=== PATIENT | female | born 2000 | race Caucasian/White ===

== ENCOUNTER → 2019-04-28 18:11 | Outpatient (CLI) | payer BC, SELFPAY | PROVIDERS: Visit Provider Nurse Practitioner Family | DX: J02.9 Acute pharyngitis, unspecified (principal) | CPT/HCPCS: 87070 ==

== ENCOUNTER 2022-03-15 18:10 | Emergency (ER) | payer BC, SELFPAY ==
--- NOTE | 2022-03-15 19:10 | HMH.EDUTC ---
[facility] [place] Disposition Clinical Impression: Pharyngitis Qualifiers: Pharyngitis/tonsillitis etiology: unspecified etiology Qualified Code(s): J02.9 - Acute pharyngitis, unspecified Disposition: Home, Self-Care Condition on Discharge: Good Instructions: DI for Pharyngitis/Tonsillopharyngitis -- Adult, Preventing the Spread of Coronavirus Discharge Instructions Additional Instructions: Drink plenty of fluids. Take tylenol or ibuprofen for pain or fever. Take the medications as directed. Follow up with your regular doctor. GO TO THE ER FOR ANY WORSENING SYMPTOMS Quarantine until you know the results of your covid-19 test. Notify your school or workplace of your results and follow their instructions regarding return to work/school. Prescriptions: Brompheniramine/Pseudoephed/Dm [Bromfed Dm Cough Syrup] 5 ml PO Q6HP PRN #240 ml PRN Reason: Cough Transmission Status: Received by [id number] methylPREDNISolone [Medrol] 4 mg PO DIRECTED 6 Days #21 packet Transmission Status: Received by [id number] Azithromycin [Z-Delta 250mg Tab*] 250 mg PO UD DOSE PK #6 tab Transmission Status: Received by [id number] Referrals: Provider,Referral, [Primary Care Provider] - Time of Disposition: 19:46 Medical Decision Making - Medical Records Medical records reviewed: No: I reviewed the patient's medical records. - Favian Inquiry Pt receiving controlled substance: No Vital Signs: 03/15/22 19:13 03/15/22 19:58 Temperature 98.3 F 99.0 F Temperature Source Oral Pulse Rate 99 H Pulse Rate [Left] 117 H Respiratory Rate 17 18 Blood Pressure 148/93 H Blood Pressure [Right Arm] 114/75 Blood Pressure Mean [Right Arm] 88 02 Sat by Pulse Oximetry 96 - Lab Data Lab results reviewed: Yes: I reviewed the patient's lab results. Lab Results 03/15/22 19:05: Strep Scn Rapid Clinic Negative Orders (Tests/Meds): ORDERS Category Date Time Status Full Resp Panel w/COVID ([facility]) Routine Lab 03/15/22 19:03 Received Strep Screen Confirmation Stat Micro 03/15/22 19:05 Received [facility] HPI - General Stated complaint: sore throat Time Seen by Provider: 03/15/22 19:10 - History of Present Illness Provider Complaint: She states that she has had a sore throat for the past 3 days. - Related Data Previous Rx's Medication Instructions Recorded Azithromycin [Z-Delta 250mg Tab*] 250 mg PO UD DOSE PK #6 tab 03/15/22 Brompheniramine/Pseudoephed/Dm 5 ml PO Q6HP PRN #240 ml 03/15/22 [Bromfed Dm Cough Syrup] methylPREDNISolone [Medrol] 4 mg PO DIRECTED 6 Days #21 03/15/22 packet Allergies Allergy/AdvReac Type Severity Reaction Status Date / Time No Known Allergies Allergy Verified 03/15/22 19:15 [facility] History - Hepatitis A Screen Attestation statement:: This patient has been screened for Hepatitis A risk factors. I have reviewed the patient's past medical history: Yes Other Surgeries: Yes: No Previous Surgery - Social History Smoking Status: Never smoker Alcohol Intake: never Substance Use Type: denies use Occupational Status: employed Housing: house Household Members: family Family Hx:: No significant family history ROS Obtained: Yes All systems reviewed & no additional complaints - Constitutional Constitutional: Reports as per HPI - Eyes Eyes: Denies eye discharge - ENT Ears, Nose, Mouth, and Throat: Reports as per HPI - Cardiovascular Cardiovascular: Denies chest pain - Respiratory Respiratory: Denies chest congestion, Reports cough Physical Exam - General General appearance: alert, in no apparent distress - Head Head exam: atraumatic, normocephalic, normal inspection - Eye Eye exam: Present: normal appearance, PERRL, EOMI - ENT ENT exam: Present: mucous membranes moist, normal external ear exam - Expanded ENT Exam TM/Canal exam: Bilateral TM: erythema, bulging Nose exam: Absent: sinus tenderness Nasal speculum e
[2022-03-15 19:13] VITALS: BP 114/75; PULSE 117; RESP 17; TEMP 36.8; O2SAT 96; BMI 22.3
[2022-03-15 19:14] LABS: UTC Strep Screen (Rapid) Negative (Negative)
[2022-03-15 19:22] LABS: Adenovirus,PCR Not Detected (NotDetected); Bordetella Pertussis Not Detected (NotDetected); Chlamydophila Pneumoniae, PCR Not Detected (NotDetected); Coronavirus 19, PCR Not Detected (NotDetected); Coronavirus 229E Not Detected (NotDetected); Coronavirus NL63 Not Detected (NotDetected); Coronavirus OC43 Not Detected (NotDetected); Coronovirus HKU1,PCR Not Detected (NotDetected); Human Metapneumovirus Not Detected (NotDetected); Influenza A, PCR Not Detected (NotDetected); Influenza AH1, 2009 Not Detected (NotDetected); Influenza AH1, PCR Not Detected (NotDetected); Influenza AH3,PCR Not Detected (NotDetected); Influenza B, PCR Not Detected (NotDetected); Mycoplasma Pneumoniae, PCR Not Detected (NotDetected); Parainfluenza 1, PCR Not Detected (NotDetected); Parainfluenza 2, PCR Not Detected (NotDetected); Parainfluenza 3, PCR Not Detected (NotDetected); Parainfluenza 4, PCR Not Detected (NotDetected); Respiratory Syncytial Virus Not Detected (NotDetected); Rhinovirus/Enterovirus Not Detected (NotDetected)
[2022-03-15 19:58] VITALS: BP 148/93; PULSE 99; RESP 18; TEMP 37.2
== END 2022-03-15 20:00 | disposition home or self-care (01) ==
PROVIDERS: Emergency Provider Nurse Practitioner Family
DX: J02.9 Acute pharyngitis, unspecified (principal); Z20.822 Contact with and (suspected) exposure to COVID-19; Z79.82 Long term (current) use of aspirin; Z79.899 Other long term (current) drug therapy
CPT/HCPCS: 87581; 87632; 87798; 87880; 99213; C9803; G0463; U0003; U0005

== ENCOUNTER 2023-11-19 10:32 | Emergency (ER) | payer BC, SELFPAY ==
[2023-11-19 11:15] VITALS: BP 121/83; PULSE 80; RESP 21; TEMP 36.8; O2SAT 99; BMI 23.9
--- NOTE | 2023-11-19 11:31 | EXP.UTC ---
Discharge Plan Disposition Patient Disposition: Home, Self-Care Condition: Good Prescriptions Prescriptions: New polymyxin B sulf-trimethoprim 10,000 unit- 1 mg/mL drops 2 drp ophthalmic (eye) Q6H 7 Days Qty: 20 0RF Rx Instructions: both eyes while awake; do not exceed 6 doses in 24 hours pseudoephedrine HCl [Sudafed 12 Hour] 120 mg tablet extended release 120 mg PO Q12H PRN (Reason: nasal congestion) Qty: 20 0RF Referrals Follow up/Referrals: Provider,Referral, MD [Primary Care Provider] - See instructions Activity Restrictions/Add. Instructions Additional Instructions/Restrictions: Use eye drops as prescribed Wash hands before and after applying drops Do not wear your Contacts Follow up with your Eye Doctor if no improvement or any worsening of symptoms Use Sudafed for nasal congestion Clinical Impressions Clinical Impression: Conjunctivitis Stand Alone Forms Stand Alone Forms: Work/School Release Instructions Patient Instructions: Conjunctivitis, DI for Conjunctivitis, Pseudoephedrine Discharge ED Provider: Delaney Waldrop [facility] [place] HPI General Stated complaint: pink eyes, conegstion Mode of Arrival: Ambulatory Source of Information: Patient Limitations: No Limitations Time Seen by Provider: 11/19/23 11:31 Description of Symptoms (Recalled from Triage Doc. by RN): PATIENT C/O BILATERAL PINK EYE X 4 DAYS AND SINUS PRESSURE SINCE YESTERDAY HEENT Symptoms (Recalled from RN notes): Yes Resp Symptoms (Recalled from RN notes): No Skin Symptoms (Recalled from RN notes): No MS Symptoms (Recalled from RN notes): No Functional Status (Recalled from RN notes): WNL History of Present Illness Provider Complaint: Patient states that for the last week she has been having redness and itchy like feeling in her eyes but for the last couple of days started with thick drainage, goopy' feeling, and this morning they was matted States that she does have some nasal congestion and thinks it is allergies Related Data Previous Rx's Medication Instructions Recorded polymyxin B sulfate 10,000 2 drp ophthalmic (eye) Q6H 7 days 11/19/23 unit-trimethoprim 1 mg/mL eye drops #20 mL pseudoephedrine HCl 120 mg 120 mg PO Q12H PRN nasal 11/19/23 tablet,extended release (Sudafed congestion #20 tabs 12 Hour) Allergies Allergy/AdvReac Type Severity Reaction Status Date / Time No Known Allergies Allergy Verified 03/15/22 19:15 Worker's Comp Is this a Worker's Comp case?: No [facility] Disclaimer: The information contained in this section may have been updated after the patient was seen, as this information can be updated by other users. Medical History (Updated 11/19/23 @ 11:36 by Delaney Waldrop APRN) No significant past medical history Social History Smoking Status: Never smoker alcohol intake: never substance use type: denies use current occupational status: employed Travel in the last 8 weeks: None household members: family housing: house ROS Obtained: Yes All systems reviewed & no additional complaints except as documented and Yes Systems reviewed as appropriate & no additional complaints except as documented Constitutional Constitutional: Reports system reviewed and no additional complaints, except as documented and Reports as per HPI Eyes Eyes: Reports system reviewed and no additional complaints, except as documented, Reports as per HPI, Reports eye discharge and Reports irritation ENT Ears, Nose, Mouth, and Throat: Reports system reviewed and no additional complaints, except as documented, Reports as per HPI and Reports nasal congestion Cardiovascular Cardiovascular: Reports system reviewed and no additional complaints, except as documented and Reports as per HPI Respiratory Respiratory: Reports system reviewed and no additional complaints, except as documented and Reports as per HPI Gastrointestinal Gastrointestingal: Reports system reviewed and no additional complaints, except as documented and as per HPI Physical Exam General General appearance: alert and in no apparent distress Eye Eye exam: Present conjunctival redness (bilateral) and discharge (bilateral, matted this am with particles noted in lashes) ENT ENT exam: Present mucous membranes moist Expanded ENT Exam Nose exam: Absent sinus tenderness Throat exam: Present normal inspection Respiratory Respiratory exam: Present normal lung sounds bilaterally; Absent respiratory distress or wheezes Cardiovascular Cardiovascular exam: Present regular rate, normal rhythm and normal heart sounds Neurological Exam Neurological exam: Present alert, oriented X3 and normal gait Medical Decision Making Favian Inquiry Pt receiving controlled substance: No Favian was queried for this patient: No Vital Signs: 11/19/23 11:15 Temperature 98.2 F Temperature Source Oral Pulse Rate [Left Brachial] 80 Respiratory Rate 21 Blood Pressure [Left Arm] 121/83 Blood Pressure Mean [Left Arm] 95 Blood Pressure Source [Left Arm] Automatic Cuff Blood Pressure Position [Left Arm] Sitting 02 Sat by Pulse Oximetry 99 Oxygen Delivery Method Room Air
[2023-11-19 11:37] VITALS: BP 121/83; PULSE 80; RESP 21; TEMP 36.8; O2SAT 99
== END 2023-11-19 11:42 | disposition home or self-care (01) ==
PROVIDERS: Emergency Provider Nurse Practitioner
DX: H10.33 Unspecified acute conjunctivitis, bilateral (principal)
CPT/HCPCS: 99212; 99214; G0463

== ENCOUNTER 2024-01-25 07:46 | Outpatient (CLI) | payer BC, SELFPAY ==
--- NOTE | 2024-01-25 07:56 | CA_ITS ---
APPROVED REPORT EXAM: Comprehensive 2D, Doppler, and color-flow Echocardiogram [employer]: Renay [place] RDCS Ht: 5 ft 4 in Wt: 135lbs BSA: 1.66 BP: 121/83 mmHg Indications: MURMUR M-Mode Dimensions RVDd 1.51 cm (0.9-2.6) LA Diam 2.19 cm (1.9-4.0) LVDd 5.15 cm (3.5-5.7) LVDs 3.70 cm (3.5-5.7) IVSd 0.49 cm (0.6-1.1) PWd 0.58 cm (0.6-1.1) EF (Teich) 54.10% FS 28.20% EDV (Teich) 126.60 mL ESV (Teich) 58.10 mL LV Diastology E Decel Time 157 (160-240 msec) E/A Ratio 1.5 Mitral Valve MV E Max Shayne. 95.0 (40-130 cm/s) MV A Velocity 64.0 (40-130 cm/s) E/A Ratio 1.49 MV PHT 46.0 ms Left Ventricle The left ventricle is normal size. The left ventricular systolic function is normal. The left ventricular ejection fraction is within the normal range. There is normal left ventricular wall thickness. There is normal LV segmental wall motion. The left ventricular diastolic function is normal. LVEF is 55%. Right Ventricle The right ventricle is normal size. The right ventricular systolic function is normal. Atria The left atrium size is normal. The right atrium size is normal. There is no Doppler evidence of interatrial shunt. Aortic Valve The aortic valve is normal in structure. There is no aortic valvular stenosis. No aortic regurgitation is present. Mitral Valve The mitral valve is normal in structure. No evidence of mitral valve stenosis. Mild mitral regurgitation. Tricuspid Valve The tricuspid valve leaflets are thin and pliable. Trace tricuspid regurgitation. RVSP is normal. Pulmonic Valve The pulmonary valve is normal in structure. Trace pulmonic regurgitation. Great Vessels The aortic root is normal in size. The ascending aorta is not well visualized. IVC is normal in size and collapses >50% with inspiration. Pericardium There is no pericardial effusion. Other Information Study Quality: Adequate Conclusion Normal biventricular systolic function. Mild MR. Electronically signed by : Deana Garcia MD 01/28/2024 20:57:15
--- NOTE | 2024-01-25 08:37 | XR_ITS ---
FINAL REPORT CLINICAL HISTORY: RT FINGER PAIN,JOINT SWELLING COMPARISON: None FINDINGS: RIGHT HAND Three views demonstrate no acute fracture or dislocation. The visualized joint spaces are normally aligned. The soft tissues are unremarkable. IMPRESSION: No acute bony abnormality. Reviewed, Interpreted and Dictated by Kleber De La Rosa MD Transcribed by Raven Lopez Authenticated and . [facility]
--- NOTE | 2024-01-25 08:37 | XR_ITS ---
FINAL REPORT CLINICAL HISTORY: LT FINGER PAIN,JOINT SWELLING COMPARISON: None FINDINGS: LEFT HAND Three views demonstrate no acute fracture or dislocation. The visualized joint spaces are normally aligned. The soft tissues are unremarkable. IMPRESSION: No acute process. Reviewed, Interpreted and Dictated by Kleber De La Rosa MD Transcribed by Raven Lopez Authenticated and [facility]
[2024-01-25 09:25] LABS: Erythrocyte Sedimentation Rate 11 mm/hr (0-20)
[2024-01-25 09:44] LABS: Alanine Aminotransferase 13 U/L (12-78); Albumin Level 4.5 g/dl (3.5-5.0); Albumin/Globulin Ratio 1.8 (1.1-1.8); Alkaline Phosphatase 53 U/L (38-126); Anion Gap 12.1 mEq/L (5-15); Aspartate Amino Transferase 20 U/L (14-36); Bilirubin,Total 1.1 mg/dl (0.2-1.3); Blood Urea Nitrogen 10 mg/dl (7-17); Calcium 9.7 mg/dl (8.4-10.2); Carbon Dioxide 28 mmol/L (22.0-30.0); Chloride 105 mmol/L (98-107); Estimated Glomerular Filt Rate 102 ml/min (>60); GFR (African American) 123 ML/MIN (>60); Globulin 2.5 g/dL (1.3-3.2); Glucose 89 mg/dl (74-100); Potassium 4.1 mmoL/L (3.5-5.1); Sodium 141 mmol/L (136-145); Uric Acid 3.5 mg/dl (2.5-6.2)
[2024-01-25 09:51] LABS: C-Reactive Protein 0.4 mg/L (0-4)
[2024-01-25 10:14] LABS: Thyroid Stimulating Hormone 1.56 uIU/mL (0.465-4.68)
[2024-01-26 15:35] LABS: RA Latex Turbid. <10.0 IU/mL (<14.0)
[2024-01-28 14:20] LABS: Antinuclear Antibodies, IFA Negative (.)
== END 2024-01-25 23:59 | disposition home or self-care (01) ==
PROVIDERS: PCP Nurse Practitioner Family; Visit Provider Nurse Practitioner Family
DX: R01.1 Cardiac murmur, unspecified (principal); M79.645 Pain in left finger(s); M79.644 Pain in right finger(s); M25.40 Effusion, unspecified joint
CPT/HCPCS: 36415; 73130; 80053; 84443; 84550; 85651; 86038; 86140; 86431; 93306